=== PATIENT | male | born 1960 | race African-American/Black ===

== ENCOUNTER 2022-01-28 13:10 | Inpatient (IN) ==
[2022-01-28] MEDS ORDERED: amLODIPine 5 MG TABLET PO STA (16:36)
[2022-01-28] MEDS ORDERED: ONDANSETRON 4 MG/2 ML VIAL IV STA (16:44)
[2022-01-28] MEDS ORDERED: HYDROmorphone 1 MG/1 ML SYRINGE IV STA (16:44)
[2022-01-28 17:01] LABS: Basophils % 0.2 % (0.0-0.8); Eosinophils % 0.2 % (0.00-10.9); Hematocrit 41.4 VOL% (42.0-52.0); Immature Granulocytes % 0.4 %; Immature Granulocytes Absolute 0.02 #; Lymphocytes # 0.8 10*3/uL (1.4-4.0); Lymphocytes % 14.4 % (21.2-54.2); Mean Corpuscular HGB Conc 31.4 GM/DL (32-36); Mean Corpuscular Volume 88.3 FL (87-102); Mean Platelet Volume 10.3 FL (9.6-12.0); Monocytes # 0.6 10*3/uL (0.11-0.8); Monocytes % 10.2 % (1.7-12.7); Neutrophils % 74.6 % (38.7-73.9); Platelet Count 314 T/CUMM (130-400); Red Blood Count 4.69 MC/CUMM (3.8-5.5); White Blood Count 5.6 T/CUMM (4-12)
[2022-01-28 17:29] LABS: Alanine Aminotransferase 20 U/L (16-61); Albumin 3.4 G/DL (3.4-5.0); Alkaline Phosphatase 177 U/L (45-117); Aspartate Amino Transferase 17 U/L (0-37); Bilirubin,Total < 0.39 MG/DL (0.20-1.00); Blood Urea Nitrogen 18 MG/DL (7-18); Calcium 9.4 MG/DL (8.5-10.1); Carbon Dioxide 28 MMOL/L (21-32); Chloride 102 MMOL/L (98-107); Glucose 104 MG/DL (74-106); Osmolality,Calculated 276.7 MOS/KG (273-304); Potassium 3.8 MMOL/L (3.5-5.1); Sodium 138 MMOL/L (136-145); Total Protein 7.7 G/DL (6.4-8.2)
[2022-01-28 19:13] LABS: PT Patient Result 10.8 SECS (10.1-12.1); Partial Thromboplastin Time 28.6 SECS (23.7-32.9)
[2022-01-28] MEDS ORDERED: MORPHINE 2 MG/1 ML SYRINGE IV PRN (19:30)
[2022-01-28] MEDS ORDERED: hydrALAZINE 20 MG/1 ML VIAL IV PRN (19:30)
[2022-01-28 20:01] LABS: Bilirubin,Urine Small mg/dL (Negative); Blood, Urine Trace mg/dL (Negative); Glucose,Urine (UA) Negative (Negative); Ketones,Urine Negative (Negative); Mucus,Urine Many /LPF (Occasional); Nitrite,Urine Negative (Negative); Protein,Urine 100 mg/dL (Negative); RBC,Urine 7 /HPF (0-4); Squamous Epithelial Cell,Urine Occasional /HPF (0-10); Urine Appearance Clear (Clear); Urine Color Yellow (Yellow); Urine Specific Gravity 1.032 (1.001-1.035); Urine Urobilinogen 0.2 eU/dL (<2.0); Urine pH 5.5 (4.5-8.0)
[2022-01-28] MEDS: cloNIDine 0.1 MG TABLET PO SCH (23:00)
[2022-01-28] MEDS: GABAPENTIN 300 MG CAPSULE PO SCH (23:00)
[2022-01-28] MEDS: METHOCARBAMOL 750 MG TABLET PO SCH (23:00)
[2022-01-29 05:44] LABS: Basophils % 0.5 % (0.0-0.8); Eosinophils # 0.1 10*3/uL (0.0-0.87); Eosinophils % 1.6 % (0.00-10.9); Hematocrit 35.9 VOL% (42.0-52.0); Hemoglobin 11.2 GM/DL (14.0-18.0); Immature Granulocytes % 0.5 %; Immature Granulocytes Absolute 0.02 #; Lymphocytes % 25.8 % (21.2-54.2); Mean Corpuscular HGB Conc 31.2 GM/DL (32-36); Mean Corpuscular Volume 89.1 FL (87-102); Mean Platelet Volume 10.5 FL (9.6-12.0); Monocytes # 0.5 10*3/uL (0.11-0.8); Monocytes % 14.7 % (1.7-12.7); Neutrophils % 56.9 % (38.7-73.9); Platelet Count 257 T/CUMM (130-400); Red Blood Count 4.03 MC/CUMM (3.8-5.5); Red Cell Distribution Width 15.1 % (9.3-17.3); White Blood Count 3.7 T/CUMM (4-12)
[2022-01-29 06:10] LABS: Calcium 8.6 MG/DL (8.5-10.1); Potassium 3.9 MMOL/L (3.5-5.1)
[2022-01-29] MEDS ORDERED: VANCOMYCIN INJ 1,000 MG in SODIUM CHLORIDE 0.9% 250 ML IV ONE (07:37)
[2022-01-29] MEDS: LACTATED RINGERS 1,000 ML IV SCH ×3 (08:44→15:59)
[2022-01-29] MEDS: cloNIDine 0.1 MG TABLET PO SCH ×2 (08:44→20:42)
[2022-01-29] MEDS: METHOCARBAMOL 750 MG TABLET PO SCH ×4 (08:45→20:43)
[2022-01-29] MEDS: PANTOPRAZOLE 40 MG TABLET PO SCH (08:45)
[2022-01-29] MEDS: GABAPENTIN 300 MG CAPSULE PO SCH ×3 (08:45→20:42)
[2022-01-29] MEDS ORDERED: propofoL 200 MG/20 ML VIAL IV ONE (10:41)
[2022-01-29] MEDS ORDERED: MIDAZOLAM 2 MG/2 ML VIAL ONE (10:41)
[2022-01-29] MEDS ORDERED: LIDOCAINE 2% 5 ML VIAL ONE (10:41)
[2022-01-29] MEDS ORDERED: fentaNYL 100 MCG/2 ML VIAL ONE (10:41)
[2022-01-29] MEDS ORDERED: SEVOFLURANE 1 UNIT/15 MINUTE INH ONE ×7 (10:41→12:24)
[2022-01-29] MEDS ORDERED: PHENYLEPHRINE 1 MG/10 ML SYRINGE IV ONE (11:01)
[2022-01-29] MEDS ORDERED: ePHEDrine 50 MG/ML VIAL ONE (11:31)
[2022-01-29] MEDS ORDERED: LACTATED RINGERS 1,000 ML IV ONE (12:06)
[2022-01-29] MEDS ORDERED: SODIUM CHLORIDE 0.9% 250 ML IV ONE (12:08)
[2022-01-29] MEDS ORDERED: PHENYLEPHRINE 10 MG/1 ML VIAL IV ONE (12:08)
[2022-01-29] MEDS ORDERED: BACITRACIN OINT 0.9 GM PACK TOP ONE (12:45)
[2022-01-29] MEDS ORDERED: ONDANSETRON 4 MG/2 ML VIAL ONE (12:48)
[2022-01-29] MEDS ORDERED: KETOROLAC 30 MG/1 ML VIAL ONE (12:48)
[2022-01-29] MEDS ORDERED: MORPHINE 2 MG/1 ML SYRINGE IV PRN (12:56)
[2022-01-29] MEDS ORDERED: diphenhydrAMINE CAP 25 MG CAPSULE PO PRN (12:56)
[2022-01-29] MEDS ORDERED: MAGNESIUM HYDROXIDE SUSP 30 ML UDCUP PO PRN (12:56)
[2022-01-29] MEDS ORDERED: ONDANSETRON 4 MG/2 ML VIAL IV PRN (13:50)
[2022-01-29] MEDS ORDERED: MEPERIDINE 25 MG/1 ML VIAL IV PRN (13:50)
[2022-01-29] MEDS ORDERED: BUPIVACAINE MPF 0.5% 30 ML VIAL ONE (13:55)
[2022-01-29] MEDS ORDERED: DEXAMETHASONE 4 MG/1 ML VIAL ONE (13:55)
[2022-01-29] MEDS ORDERED: LIDOCAINE 1% 5 ML VIAL ONE (13:55)
[2022-01-29] MEDS: MORPHINE 2 MG/1 ML SYRINGE IV PRN (15:59)
[2022-01-29] MEDS: KETOROLAC 15 MG/1 ML VIAL IV SCH ×2 (17:56→23:18)
[2022-01-29] MEDS: DOCUSATE SODIUM 100 MG CAPSULE PO SCH (20:42)
[2022-01-30] MEDS: MORPHINE 2 MG/1 ML SYRINGE IV PRN ×2 (02:22→18:46)
[2022-01-30 04:48] LABS: Basophils % 0.2 % (0.0-0.8); Hematocrit 31.4 VOL% (42.0-52.0); Immature Granulocytes % 0.6 %; Immature Granulocytes Absolute 0.04 #; Lymphocytes # 0.5 10*3/uL (1.4-4.0); Lymphocytes % 8.1 % (21.2-54.2); Mean Corpuscular HGB Conc 31.8 GM/DL (32-36); Mean Platelet Volume 10.4 FL (9.6-12.0); Monocytes # 0.5 10*3/uL (0.11-0.8); Monocytes % 6.8 % (1.7-12.7); Neutrophils % 84.3 % (38.7-73.9); Platelet Count 218 T/CUMM (130-400); Red Blood Count 3.53 MC/CUMM (3.8-5.5); Red Cell Distribution Width 15.1 % (9.3-17.3); White Blood Count 6.7 T/CUMM (4-12)
[2022-01-30 05:26] LABS: Osmolality,Calculated 276.5 MOS/KG (273-304); Potassium 4.1 MMOL/L (3.5-5.1)
[2022-01-30] MEDS: KETOROLAC 15 MG/1 ML VIAL IV SCH ×2 (06:14→12:21)
[2022-01-30] MEDS: cloNIDine 0.1 MG TABLET PO SCH ×2 (09:13→21:35)
[2022-01-30] MEDS: METHOCARBAMOL 750 MG TABLET PO SCH ×4 (09:13→21:35)
[2022-01-30] MEDS: PANTOPRAZOLE 40 MG TABLET PO SCH (09:13)
[2022-01-30] MEDS: GABAPENTIN 300 MG CAPSULE PO SCH ×3 (09:14→21:35)
[2022-01-30] MEDS: DOCUSATE SODIUM 100 MG CAPSULE PO SCH ×2 (09:14→21:35)
[2022-01-30] MEDS: FONDAPARINUX 2.5 MG/0.5 ML SYRINGE SUBCUT SCH (09:14)
[2022-01-30] MEDS: LACTATED RINGERS 1,000 ML IV SCH (21:56)
[2022-01-31] MEDS: MORPHINE 2 MG/1 ML SYRINGE IV PRN ×2 (00:14→20:47)
[2022-01-31] MEDS: ONDANSETRON 4 MG/2 ML VIAL IV PRN ×3 (04:53→20:46)
[2022-01-31 06:28] LABS: Basophils % 0.3 % (0.0-0.8); Eosinophils # 0.1 10*3/uL (0.0-0.87); Hematocrit 31.3 VOL% (42.0-52.0); Hemoglobin 10.1 GM/DL (14.0-18.0); Immature Granulocytes % 0.6 %; Immature Granulocytes Absolute 0.04 #; Lymphocytes # 0.7 10*3/uL (1.4-4.0); Lymphocytes % 9.6 % (21.2-54.2); Mean Corpuscular HGB Conc 32.3 GM/DL (32-36); Mean Corpuscular Volume 88.4 FL (87-102); Mean Platelet Volume 10.2 FL (9.6-12.0); Monocytes # 0.6 10*3/uL (0.11-0.8); Monocytes % 7.9 % (1.7-12.7); Neutrophils % 80.6 % (38.7-73.9); Platelet Count 217 T/CUMM (130-400); Red Blood Count 3.54 MC/CUMM (3.8-5.5); Red Cell Distribution Width 15.3 % (9.3-17.3)
[2022-01-31] MEDS: PANTOPRAZOLE 40 MG TABLET PO SCH (08:13)
[2022-01-31] MEDS: GABAPENTIN 300 MG CAPSULE PO SCH ×3 (08:13→20:46)
[2022-01-31] MEDS: FONDAPARINUX 2.5 MG/0.5 ML SYRINGE SUBCUT SCH (08:13)
[2022-01-31] MEDS: cloNIDine 0.1 MG TABLET PO SCH ×2 (08:13→20:46)
[2022-01-31] MEDS: DOCUSATE SODIUM 100 MG CAPSULE PO SCH ×2 (08:13→20:46)
[2022-01-31] MEDS: METHOCARBAMOL 750 MG TABLET PO SCH ×4 (08:13→20:46)
[2022-01-31] MEDS ORDERED: DENOSUMAB 120 MG/1.7 ML VIAL SUBCUT ONE (09:12)
[2022-02-01] MEDS: MORPHINE 2 MG/1 ML SYRINGE IV PRN (05:12)
[2022-02-01] MEDS: ONDANSETRON 4 MG/2 ML VIAL IV PRN (05:14)
[2022-02-01 05:55] LABS: Basophils % 0.3 % (0.0-0.8); Eosinophils # 0.2 10*3/uL (0.0-0.87); Eosinophils % 3.2 % (0.00-10.9); Hematocrit 28.6 VOL% (42.0-52.0); Hemoglobin 8.8 GM/DL (14.0-18.0); Immature Granulocytes % 0.8 %; Immature Granulocytes Absolute 0.05 #; Lymphocytes % 14.9 % (21.2-54.2); Mean Corpuscular HGB Conc 30.8 GM/DL (32-36); Mean Corpuscular Volume 90.2 FL (87-102); Mean Platelet Volume 10.2 FL (9.6-12.0); Monocytes # 0.6 10*3/uL (0.11-0.8); Monocytes % 8.9 % (1.7-12.7); Neutrophils % 71.9 % (38.7-73.9); Platelet Count 186 T/CUMM (130-400); Red Blood Count 3.17 MC/CUMM (3.8-5.5); Red Cell Distribution Width 15.2 % (9.3-17.3); White Blood Count 6.6 T/CUMM (4-12)
[2022-02-01 08:04] VITALS: BP 131/79
[2022-02-01] MEDS: FONDAPARINUX 2.5 MG/0.5 ML SYRINGE SUBCUT SCH (08:23)
[2022-02-01] MEDS: GABAPENTIN 300 MG CAPSULE PO SCH (08:24)
[2022-02-01] MEDS: METHOCARBAMOL 750 MG TABLET PO SCH (08:24)
[2022-02-01] MEDS: DOCUSATE SODIUM 100 MG CAPSULE PO SCH (08:24)
[2022-02-01] MEDS: cloNIDine 0.1 MG TABLET PO SCH (08:24)
[2022-02-01] MEDS: PANTOPRAZOLE 40 MG TABLET PO SCH (08:24)
[2022-02-01] MEDS ORDERED: CALCIUM (CARBONATE)/VITAMIN D 600 MG-400 UNIT TABLET PO SCH (09:00)
[2022-02-01] MEDS ORDERED: ZOLEDRONIC ACID 4 MG/100 ML PREMIX IV ONE (09:45)
== END 2022-02-01 10:28 | DRG 323 ==
LOC: N.ED 13:10 → N.EDINP 19:30 → N.3E 20:52
PROVIDERS: ADMIT Hospitalist; ATTEND Hospitalist